=== PATIENT | female | born 1970 | race Caucasian/White ===

== ENCOUNTER 2022-07-05 22:03 | Emergency (ER) | payer MEDICARE, MEDICAID ==
[~2022-07-05] VITALS: Ht 170.2 cm; Wt 122.7 kg
[~2022-07-05 22:03] MED LIST: CEPHALEXIN500 M1 PO; GLUCOPHAGE1000 MG PO; TRULICITY0.75 MG/0. SQ
[2022-07-05 22:08] VITALS: BP 191/111; PULSE 83; TEMP 98.4
[2022-07-05 22:53] LABS: ACETONE,SERUM NEGATIVE
[2022-07-05 22:57] LABS: ALANINE AMINOTRANSFERASE 18 U/L (0-55); ALBUMIN 3.8 gm/dL (3.5-5.0); ALKALINE PHOSPHATASE 77 U/L (40-150); ANION GAP 13 mmol/L (7-16); AST,SGOT 20 U/L (5-34); BILIRUBIN,TOTAL 0.6 mg/dL (0.2-1.2); BLOOD UREA NITROGEN 20 mg/dL (10-20); C-REACTIVE PROTEIN 0.55 mg/dL (0.00-0.50); CALCIUM 9.3 mg/dL (8.4-10.2); CARBON DIOXIDE 25 mmol/L (22-29); CHLORIDE 96 mmol/L (98-107); CREATININE, serum 1.06 mg/dL (0.57-1.11); LIPASE 49 U/L (8-78); POTASSIUM 4.3 mmol/L (3.5-4.5); SODIUM 134 mmol/L (136-145); TOTAL PROTEIN 7.5 gm/dL (6.2-8.1)
[2022-07-05 22:59] LABS: GLUCOSE 468 mg/dL (70-99)
[2022-07-05 23:26] LABS: COLLECTION METHOD CLEAN CATCH
[2022-07-05 23:47] LABS: PH 5.5 (5.0-8.5); URINE APPEARANCE Hazy (CLEAR/HAZY); URINE COLOR Yellow (YELLOW); URINE GLUCOSE 2+ (NEGATIVE); URINE KETONE Negative (NEGATIVE); URINE PROTEIN(semi-quant) Negative (NEGATIVE); URINE UROBILINOGEN 0.2 E.U/dL (0.2-1.0)
[2022-07-05 23:48] LABS: URINE BLOOD Negative (NEGATIVE); URINE NITRATE Positive (NEGATIVE)
[2022-07-05 23:50] LABS: MUCOUS Present (NOT PRESENT); URINE BACTERIA Rare /hpf (NONE SEEN); URINE RBC 0-2 /hpf (0-2)
== END 2022-07-06 00:05 | disposition left against medical advice (07) ==
LOC: COL.ER 22:03
PROVIDERS: Nurse Practitioner Primary Care
DX: E11.65 Type 2 diabetes mellitus with hyperglycemia (principal); F17.200 Nicotine dependence, unspecified, uncomplicated; Z28.310 Unvaccinated for COVID-19